=== PATIENT | male | born 1995 | race Two or more races ===

== ENCOUNTER 2019-02-27 20:07 | Emergency (ER) | payer SELFPAY ==
[~2019-02-27] VITALS: Ht 165.1 cm; Wt 56.8 kg
[2019-02-27] MEDS ORDERED: ACETAMINOPHEN 500 MG TABLET PO ONE (21:00)
[2019-02-27 21:27] LABS: INFLUENZA TYPE A POSITIVE FOR TYPE A (NEGATIVE); INFLUENZA TYPE B NEGATIVE FOR TYPE B (NEGATIVE)
[2019-02-27] MEDS ORDERED: ACETAMINOPHEN 650 MG/20.3 ML SOLUTION UDCUP PO ONE (21:30)
[2019-02-27] MEDS ORDERED: SODIUM CHLORIDE 0.9% 1,000 ML IV ONE (22:00)
[2019-02-27] MEDS ORDERED: ONDANSETRON HCL 4 MG/2 ML VIAL IM ONE (22:00)
[2019-02-27] MEDS ORDERED: ONDANSETRON HCL 4 MG/2 ML VIAL IVP ONE (22:00)
[2019-02-27] MEDS ORDERED: OSELTAMIVIR PHOSPHATE 6 MG/ML 5 ML SUSPENSION ORAL.SYG PO ONE (22:00)
[2019-02-27 23:00] VITALS: BP 117/73
== END 2019-02-27 23:05 | disposition home or self-care (01) ==
LOC: EMS 20:11
DX: J11.1 Influenza due to unidentified influenza virus with other respiratory manifestations (principal)
CPT/HCPCS: 87804; 96374; 99283; J2405; J7030